=== PATIENT | female | born 1980 | race Caucasian/White ===

== ENCOUNTER 2018-07-22 08:49 | Emergency (ER) | payer MEDICAID ==
[~2018-07-22] VITALS: Ht 177.8 cm; Wt 64.8 kg
[2018-07-22] MEDS ORDERED: LORazepam 1 MG tablet PO ONE (09:15)
--- NOTE | 2018-07-22 09:19 | NUR ---
AMB TO ER #13 WITH C/O SHAKINESS, NERVOUS, NAUSEA, VOMITING, DIARRHEA X ONE WEEK. STATES HX ETOH USE DAILY. LAST ETOH WAS LAST EVENING. ANSWERS QUESTIONS APPROPRIATELY, BUT TREMOROUS AND APPEARS ANXIOUS.
[2018-07-22 09:36] LABS: BASOPHILS % (AUTO) 0.7 % (0-1); EOSINOPHILS # (AUTO) 0.1 X10'3 (0-0.9); EOSINOPHILS % (AUTO) 1.7 % (0-6); HEMATOCRIT 42.4 % (35.0-45.0); HEMOGLOBIN 14.2 g/dl (12.0-16.0); LYMPHOCYTES # (AUTO) 1.1 X10'3 (1.1-4.8); LYMPHOCYTES % (AUTO) 36.4 % (21-51); MEAN CORPUSCULAR HEMOGLOBIN 32.3 PG (27.0-31.0); MEAN CORPUSCULAR HGB CONC 33.5 g/dL (33.0-36.5); MEAN CORPUSCULAR VOLUME 96.4 FL (78-98); MEAN PLATELET VOLUME 9.1 FL (7.4-10.4); MONOCYTES # (AUTO) 0.2 X10'3 (0-0.9); MONOCYTES % (AUTO) 6.2 % (2-12); NEUTROPHILS # (AUTO) 1.7 X10'3 (1.8-7.7); PLATELET COUNT 105 X10'3 (140-440); RED CELL DISTRIBUTION WIDTH 13.3 % (11.5-14.5); WHITE BLOOD COUNT 3.1 X10'3 (4.5-11.0)
[2018-07-22 09:49] LABS: URINE HCG NEGATIVE (NEG)
[2018-07-22 09:50] LABS: ALANINE AMINOTRANSFERASE 85 U/L (12-78); ALKALINE PHOSPHATASE 59 IU/L (46-116); ANION GAP 13 (8-16); ASPARTATE AMINO TRANSFERASE 124 U/L (10-37); BILIRUBIN,TOTAL 1.2 MG/DL (0.1-1.0); BLOOD UREA NITROGEN 8 MG/DL (7-18); BUN/CREATININE RATIO 14.5 (6.6-38.0); CALCIUM 8.9 MG/DL (8.5-10.1); CHLORIDE 101 MMOL/L (99-107); CREATININE 0.55 MG/DL (0.40-0.90); GLUCOSE 97 MG/DL (70-104); POTASSIUM 3.5 MMOL/L (3.5-5.1); SODIUM 137 MMOL/L (135-145); TOTAL CARBON DIOXIDE 23.4 MMOL/L (24-32); eGFR > 90 ML/MIN
[2018-07-22] MEDS ORDERED: LORA0.5T PO (10:35)
[2018-07-22 10:54] VITALS: BP 125/85
== END 2018-07-22 10:57 | disposition home or self-care (01) ==
LOC: ER 08:50
DX: F10.239 Alcohol dependence with withdrawal, unspecified (principal); Y90.9 Presence of alcohol in blood, level not specified
CPT/HCPCS: 36415; 80053; 80320; 81025; 85025; 99284

== ENCOUNTER 2018-07-24 10:13 | Emergency (ER) | payer MEDICAID ==
[~2018-07-24] VITALS: Ht 177.8 cm; Wt 63.6 kg
[~2018-07-24 10:13] MED LIST: LORA0.5T PO
[2018-07-24 10:33] VITALS: BP 127/73
== END 2018-07-24 10:50 | disposition home or self-care (01) ==
LOC: ER 10:14
DX: Z00.8 Encounter for other general examination (principal); Z79.899 Other long term (current) drug therapy
CPT/HCPCS: 99281